=== PATIENT | female | born 1960 | race Asian ===

== ENCOUNTER → 2022-05-21 | Outpatient (CLI) | payer OTHER ==
[~2022-05-21] MED LIST: SULTRIDS PO
[2022-05-21 12:51] LABS: BASOPHILS ABSOLUTE AUTO 0.06 K/mm3 (0.00-0.23); BASOPHILS PERCENT AUTO 1 % (0-2); EOSINOPHILS ABSOLUTE AUTO 0.14 K/mm3 (0.00-0.68); EOSINOPHILS PERCENT AUTO 3 % (0-6); Hematocrit 42.2 % (33.0-51.0); Hemoglobin 14.2 g/dL (11.5-16.0); IMMATURE GRAN ABSOLUTE AUTO 0.01 K/mm3 (0.00-0.10); IMMATURE GRAN PERCENT AUTO 0 % (0-1); LYMPHOCYTES ABSOLUTE AUTO 1.36 K/mm3 (0.84-5.20); LYMPHOCYTES PERCENT AUTO 26 % (21-46); MONOCYTES ABSOLUTE AUTO 0.36 K/mm3 (0.16-1.47); MONOCYTES PERCENT AUTO 7 % (4-13); Mean Corpuscular HGB 30.5 pg (26.0-34.0); Mean Corpuscular HGB Conc 33.6 g/dL (31.5-36.5); Mean Corpuscular Volume 91 fL (80-100); Mean Platelet Volume 9.9 fL (9.1-12.4); NEUTROPHILS ABSOLUTE AUTO 3.29 K/mm3 (1.96-9.15); NEUTROPHILS PERCENT AUTO 63 % (41-73); Platelet Count 366 K/mm3 (150-400); RDW Coefficient Variation 12.4 % (11.7-14.2); RDW Standard Deviation 41.1 fL (35.1-46.3); Red Blood Cell Count 4.65 M/mm3 (3.80-5.20); White Blood Cell Count 5.22 K/mm3 (4.00-11.30)
[2022-05-21 13:20] LABS: Albumin, Blood 3.9 g/dL (3.4-5.0); Bilirubin, Total 0.4 mg/dL (0.1-1.0); Bun/Creatinine Ratio 25.5 (12.0-20.0); Calcium, Blood 9.1 mg/dL (8.5-10.1); Creatinine, Blood 0.67 mg/dL (0.40-1.00); Potassium, Blood 3.8 mmol/L (3.5-5.5); Total Protein, Blood 7.9 g/dL (6.4-8.2)
== END | disposition home or self-care (01) ==
LOC: LAB SHORT 11:28 → LAB 11:28
PROVIDERS: Internal Medicine Hematology & Oncology
DX: C50.919 Malignant neoplasm of unspecified site of unspecified female breast (principal)
CPT/HCPCS: 80053; 85025

== ENCOUNTER 2022-07-28 08:43 | Day surgery (SDC) | payer OTHER ==
[~2022-07-28] VITALS: Ht 170.2 cm; Wt 70.0 kg
--- NOTE | 2022-07-28 09:18 | NUR ---
History, Chart, Medications and Allergies reviewed before start of procedure. Patient confirms NPO status and agrees with scheduled surgery. PATIENT BELONGINGS PLACED UNDERNEATH GURNEY FOR SAFEKEEPING. PT GLASSES TAKEN TO PACU FOR SAFEKEEPING.
--- NOTE | 2022-07-28 11:35 | NUR ---
NAOMI COBB FROM RADIOLOGY CALLED, STATED PER , PLACEMENT OF MEDIPORT IN RIGHT ATRIUM. PT VSS AND EKG NORMAL. NO ECTOPY SEEN BY ME. I CALLED SURGEON TO NOTIFY. PER SURGEON, OKAY TO D/C TO STEPDOWN IF NO ECTOPY SEEN ON EKG. PT TRANSFERED TO STEP DOWN IN STABLE CONDITION WITHOUT COMPLAINT.
--- NOTE | 2022-07-28 11:37 | NUR ---
PT AXOX4, ABLE TO REPOSITION SELF IN BED. PT REPORTS 2/10 SORE PAIN ON INCISION SITES. PT HAS TWO INCISION SITES THAT ARE CDI WITH DERMABOND IN PLACE, NO DRAINAGE, REDNESS OR SWELLING NOTED. PT REQUESTING TO BE CALLED FOR RIDE HOME.
--- NOTE | 2022-07-28 11:59 | NUR ---
PT HAS ONE INCISION SITE ON R NECK AND ANOTHER ON R CHEST. BOTH COVERED WITH DERMABOND, CDI. NO DRAINAGE, SWELLING, REDNESS NOTED. PT REPORTS 2/10 SORE PAIN ON INCISION SITE BUT REFUSES PAIN MEDICATION. IS AXOX4, AMBULATES WITH STEADY GAIT AND IS REQUESTING TO GO HOME.
--- NOTE | 2022-07-28 12:01 | NUR ---
Patient up to Ambulate independently. Gait steady. Discharge instructions reviewed with patient. Patient verbalizes understanding. Copy given to patient to take home. Dressing to procedure site clean, dry, intact with no visible drainage, swelling, erythema or bruising noted. Patient States Post-Procedure ride home has been arranged. Discharged via wheelchair to private car for ride home.ALL BELONGINGS RETURNED TO PATIENT.
== END 2022-07-28 22:58 | disposition home or self-care (01) ==
LOC: ORSCMMR 08:43 → ORD 10:00 → ORSCMMR 10:00
PROVIDERS: Surgery
PROC: 05HM33Z Insertion of Infusion Device into Right Internal Jugular Vein, Percutaneous Approach (ICD-10-PCS; principal; 2022-07-28 10:00)
PROC: B543ZZA Ultrasonography of Right Jugular Veins, Guidance (ICD-10-PCS; principal; 2022-07-28 10:00)
DX: C50.919 Malignant neoplasm of unspecified site of unspecified female breast (principal)
CPT/HCPCS: 77001; C1788; J0690; J1100; J1642; J2250; J2405; J2704; J3010; J7120